=== PATIENT | male | born 1955 | race Caucasian/White ===

== ENCOUNTER → 2017-04-14 11:44 | Emergency (ER) | payer BC ==
[~2017-04-14 11:44] MED LIST: Polymyx/Trimethoprim OPTH* 10 ML BTL LEFT EYE ONE
--- NOTE | 2017-04-14 13:12 | ED ---
Throat Pain/Nasal Congestion - HPI Summary HPI Summary: 61M presents with left eye pain. He got a branch in his eye. He states he may have a scratch or a foreign body. His tetanus is up to date. He denies any change in vision, double vision. He has history of getting lance into his eye at work. He does not wear contacts or glasses. His eye has been watering. - History of Current Complaint Chief Complaint: EDEyeProblem Time Seen by Provider: 04/14/17 12:08 - Allergies/Home Medications Allergies/Adverse Reactions: Allergies Allergy/AdvReac Type Severity Reaction Status Date / Time No Known Allergies Allergy Verified 07/25/16 07:58 PMH/Surg Hx/FS Hx/Imm Hx Endocrine/Hematology History: Denies: Hx Anticoagulant Therapy, Hx Diabetes, Hx Thyroid Disease Cardiovascular History: Denies: Hx Hypertension, Hx Pacemaker/ICD Respiratory History: Denies: Hx Asthma, Hx Chronic Obstructive Pulmonary Disease (COPD) History: Denies: Hx Renal Disease Sensory History: Reports: Hx Contacts or Glasses - readers only Denies: Hx Hearing Aid Opthamlomology History: Reports: Hx Contacts or Glasses - readers only Neurological History: Denies: Hx Dementia, Hx Seizures Psychiatric History: Denies: Hx Panic Disorder, Hx Substance Abuse - Surgical History Surgery Procedure, Year, and Place: RIGHT KNEE ARTHROSCOPY, [facility] [place]. 05/23/2016 RIGHT LONG FINGER COLLATERAL LIGAMENT REPAIR, [facility] [place] Hx Anesthesia Reactions: No Infectious Disease History: No Infectious Disease History: Denies: Hx Hepatitis, Hx Human Immunodeficiency Virus (HIV), Traveled Outside the [place] in Last 30 Days - Family History Known Family History: Positive: Cardiac Disease - Social History Alcohol Use: Rare Substance Use Type: Reports: None Smoking Status (MU): Heavy Every Day Tobacco Smoker Type: Cigarettes Amount Used/How Often: 1 PPD X 45 YEARS Length of Time of Smoking/Using Tobacco: 45 YEARS Have You Smoked in the Last Year: Yes Review of Systems Negative: Fever Positive: Drainage, Erythema Negative: Chest Pain Negative: Shortness Of Breath All Other Systems Reviewed And Are Negative: Yes Physical Exam Triage Information Reviewed: Yes Vital Signs On Initial Exam: Initial Vitals Temp Pulse Resp BP Pulse Ox 97.5 F 70 18 135/67 98 04/14/17 11:51 04/14/17 11:51 04/14/17 11:51 04/14/17 11:51 04/14/17 11:51 Vital Signs Reviewed: Yes Appearance: Positive: Well-Appearing Skin: Positive: Warm, Dry Head/Face: Positive: Temporal Artery Tenderness Eyes: Positive: EOMI, YAYA, Other: - subconjunctive hemorrhage of medial aspect of left eye ENT: Positive: Normal ENT inspection, Pharynx normal, TMs normal Respiratory/Lung Sounds: Positive: Clear to Auscultation, Breath Sounds Present Cardiovascular: Positive: Normal, RRR Procedures - Eye Procedure Alcaine Drops Administered: Yes - 1mm uptake with fluorscein at 9 postion Eye Irrigated w/ Saline (ccs): 20 Diagnostics - Vital Signs Vital Signs Temp Pulse Resp BP Pulse Ox 04/14/17 12:10 97.5 F 70 16 135/67 98 04/14/17 11:51 97.5 F 70 18 135/67 98 - Laboratory Lab Statement: Any lab studies that have been ordered have been reviewed, and results considered in the medical decision making process. EENT Course/Dx - Course Course Of Treatment: 61M presents with left eye pain. He got a branch in his eye. He states he may have a scratch or a foreign body. His tetanus is up to date. He denies any change in vision, double vision. He has history of getting lance into his eye at work. He does not wear contacts or glasses. His eye has been watering. on exam no foreign body seen. 1mm uptake at 9 position on fluorscein exam. will treat with polytrim. has subconjunctiva hemorrhage. told to follow up with optho if no improvement. patient understands and agrees with plan. - Differential Diagnoses Differential Diagnoses: Conjunctivitis, Corneal Abrasion, Foreign Body - Diagnoses Provider Diagnoses: Subconjunctival hemorrhage, Left corneal abrasion Discharge - Discharge Plan Condition: Good Disposition: HOME Patient Education Materials: Subconjunctival Hemorrhage (ED), Corneal Abrasion (ED) Referrals: Xavier Vieyra MD [Primary Care Provider] - Brice Rogers MD [Medical Doctor] - Additional Instructions: Place 1 drop in eye 4 times a day for 5 days of antibiotics Use artificial tears to keep eye lubricated Take Tylenol or ibuprofen for pain Follow up with ophthalmology if no improvement in 5 days Return to ED if develop any new or worsening symptoms
[2017-04-14 13:37] VITALS: BP 127/82
== END | disposition home or self-care (01) ==
LOC: ED 11:44
DX: H11.32 Conjunctival hemorrhage, left eye (principal); S05.02XA Injury of conjunctiva and corneal abrasion without foreign body, left eye, initial encounter; X58.XXXA Exposure to other specified factors, initial encounter
CPT/HCPCS: 99282